=== PATIENT | male | born 1950 | race Caucasian/White ===

== ENCOUNTER 2019-04-25 07:02 | Emergency (ER) | payer MEDICARE ==
[~2019-04-25] VITALS: Ht 175.3 cm; Wt 102.3 kg
[2019-04-25] MEDS ORDERED: KETOROLAC 30 MG/ML VIAL. ONE (07:34)
[2019-04-25] MEDS ORDERED: KETOROLAC 30 MG/ML VIAL. IM ONE (07:45)
--- NOTE | 2019-04-25 07:59 | RAD ---
CT CERVICAL SPINE WO CONTRAST DATE: 04/25/2019 7:30 AM INDICATION: Neck pain TECHNIQUE: Noncontrast CT of the cervical spine was performed. Sagittal and coronal reformats were performed and evaluated. One or more of the following dose reduction techniques were utilized: Automated exposure control (AEC), Adjustment of mA and/or kV according to patient size, Use of iterative reconstruction technique such as ASiR, CT scan done according to ALARA and image gently/image wisely COMPARISON: None. FINDINGS: Straightening of the cervical lordosis. No acute fracture. No aggressive lytic or blastic osseous lesions. Moderate multilevel degenerative disc space height loss. Multilevel mild spinal canal stenosis secondary to disc protrusions and marginal osteophytes. Multilevel mild and moderate neuroforaminal narrowing secondary to uncovertebral arthrosis. Multilevel mild and moderate facet arthrosis. The thyroid gland is normal. No cervical lymphadenopathy. Carotid atherosclerosis. The visualized aerodigestive tract is normal. The visualized portions of the lungs are clear. IMPRESSION: 1. No acute fracture or dislocation. 2. Moderate degenerative cervical spondylosis. Electronically signed by: Darius Camarillo MD (04/25/2019 7:56 AM) [id number]
[2019-04-25] MEDS ORDERED: IBUP600T16 PO (08:11)
[2019-04-25] MEDS ORDERED: CYCL-331 PO (08:11)
[2019-04-25 08:16] VITALS: BP 144/83
--- NOTE | 2019-04-25 08:54 | PHYS DOC ---
Past History Past Medical History: Cancer, High Cholesterol, Hypertension Past Surgical History: No Surgical History Alcohol Use: None Adult General Chief Complaint Chief Complaint: Neck Pain HPI HPI Patient is a 69-year-old male presenting with neck pain since Tuesday he carried a 2-year-old grandchild a mild through the red since then he's had increasing pain in his neck bilateral. For her to sleep. Symptoms are moderate slowly worsening with time no relief with some oxycodone he had left over. No numbness or tingling no bowel or bladder incontinence arms and legs feel normal no fever. Does have a prior history of Hodgkin's lymphoma 15 years ago that was completely treated in remission. Review of Systems Review of Systems Constitutional: Denies fever or chills [] Eyes: Denies change in visual acuity, redness, or eye pain [] HENT: Denies nasal congestion or sore throat [] Respiratory: Denies cough or shortness of breath [] Cardiovascular: No additional information not addressed in HPI [] GI: Denies abdominal pain, nausea, vomiting, bloody stools or diarrhea [] : Endocrine: Denies polyuria or polydipsia [] All other systems were reviewed and found to be within normal limits, except as documented in this note. Current Medications Current Medications Current Medications Medications (Trade) Dose Ordered Sig/Yesica Start Time Stop Time Status Last Admin Dose Admin Ketorolac Tromethamine (Toradol 30mg Vial) 30 mg STK-MED ONCE 04/25/19 07:34 04/25/19 07:34 DC Allergies Allergies Allergies Coded Allergies Type Severity Reaction Last Updated Verified No Known Drug Allergies 04/25/19 No Physical Exam Physical Exam Constitutional: Well developed, well nourished, no acute distress, non-toxic appearance. [] HENT: Normocephalic, atraumatic, bilateral external ears normal, oropharynx moist, no oral exudates, nose normal. [] Eyes: PERRLA, EOMI, conjunctiva normal, no discharge. [] Neck: There is tenderness to palpation noted bilateral trapezius and paraspinous with some mild midline tenderness. Range of motion is somewhat limited secondar y to pain there is no lymphadenopathy Pulmonary: Normal respiratory effort no increased work of breathing no obvious chest wall trauma Abdomen: , soft, no tenderness, no masses, no pulsatile masses. [] Skin: Warm, dry, no erythema, no rash. [] Back: No tenderness, no CVA tenderness. [] Extremities: No tenderness, no cyanosis, no clubbing, ROM intact, no edema. [] Neurologic: Alert and oriented X 3, normal motor function, normal sensory function, no focal deficits noted. [] Psychologic: Affect normal, judgement normal, mood normal. [] Current Patient Data Vital Signs Vital Signs Date Time Temp Pulse Resp B/P (MAP) Pulse Ox O2 Delivery O2 Flow Rate FiO2 04/25/19 08:16 98.0 85 18 144/83 (103) 96 EKG EKG [] Radiology/Procedures Radiology/Procedures [] Impressions: FINDINGS: Straightening of the cervical lordosis. No acute fracture. No aggressive lytic or blastic osseous lesions. Moderate multilevel degenerative disc space height loss. Multilevel mild spinal canal stenosis secondary to disc protrusions and marginal osteophytes. Multilevel mild and moderate neuroforaminal narrowing secondary to uncovertebral arthrosis. Multilevel mild and moderate facet arthrosis. The thyroid gland is normal. No cervical lymphadenopathy. Carotid atherosclerosis. The visualized aerodigestive tract is normal. The visualized portions of the lungs are clear. IMPRESSION: 1. No acute fracture or dislocation. 2. Moderate degenerative cervical spondylosis. Electronically signed by: Donte Camarillo MD (04/25/2019 7:56 AM) [id number] DICTATED AND SIGNED BY: DONTE CAMARILLO MD DATE: 04/25/19 0756 CC: DILIP MILAN MD; MER[facility] SPENCE ~ Course & Med Decision Making Course & Med Decision Making Pertinent Labs and Imaging studies reviewed. (See chart for details) []Likely muscle strain neurologically intact CT imaging which was performed due to previous history of malignancy was negative acute there is arthritis I notified the patient of these results recommended Flexeril advised not to drive take Advil do not take for more than one week take with food. Return precautions discussed Dragon Disclaimer Dragon Disclaimer This electronic medical record was generated, in whole or in part, using a voice recognition dictation system. Departure Departure: Impression: Primary Impression: Neck pain Disposition: HOME, SELF-CARE Condition: STABLE Patient Instructions: Muscle Strain Scripts Ibuprofen (IBUPROFEN) 600 Mg Tablet 600 MG PO Q6HRS PRN for PAIN, #28 TAB take with food and not for more than a week Prov: DILIP MILAN MD 04/25/19 Cyclobenzaprine Hcl (CYCLOBENZAPRINE HCL) 10 Mg Tablet 1 TAB PO TID for muscle pain, #21 TAB Prov: DILIP MILAN MD 04/25/19 DILIP MILAN MD Apr 25, 2019 08:54
== END 2019-04-25 08:14 | disposition home or self-care (01) ==
LOC: ER 07:02
DX: M54.2 Cervicalgia (principal); I10 Essential (primary) hypertension; E78.5 Hyperlipidemia, unspecified
CPT/HCPCS: 72125; 96372; 99284; J1885